=== PATIENT | male | born 1980 | race Caucasian/White ===

== ENCOUNTER 2022-01-23 20:09 | Emergency (ER) | payer SELFPAY ==
[~2022-01-23] VITALS: Ht 167.6 cm; Wt 59.0 kg
[2022-01-23 20:28] VITALS: BP 150/91
--- NOTE | 2022-01-23 21:39 | NUR ---
pt ambulatory to bed 09
[2022-01-23] MEDS ORDERED: LORazepam 1 MG TAB PO ONE (22:20)
[2022-01-23] MEDS ORDERED: ATA25 PO (22:21)
[2022-01-23 22:38] VITALS: BP 150/91
--- NOTE | 2022-01-23 22:38 | NUR ---
Patient discharged with v/s stable. Written and verbal after care instructions given and explained. Patient alert, oriented and verbalized understanding of instructions. Ambulatory with steady gait. All questions addressed prior to discharge. ID band removed. Patient advised to follow up with PMD. Rx of HYDROXYZINE HYDROCHLORIDE given. Patient educated on indication of medication including possible reaction and side effects. Opportunity to ask questions provided and answered.
== END 2022-01-23 22:38 | disposition home or self-care (01) ==
LOC: MED 20:09
DX: F41.9 Anxiety disorder, unspecified (principal); F17.210 Nicotine dependence, cigarettes, uncomplicated; Z79.899 Other long term (current) drug therapy; Z71.6 Tobacco abuse counseling
CPT/HCPCS: 99283